=== PATIENT | male | born 1945 | race Caucasian/White ===

== ENCOUNTER 2016-08-05 11:23 | Observation (INO) | payer MEDICARE, OTHER ==
[~2016-08-05] VITALS: Ht 170.2 cm; Wt 98.4 kg
[~2016-08-05 11:23] MED LIST: ASPIRIN E.C. 8181 MG PO; CARDIZEM CD120 MG PO; CO Q-1050 MG PO; DILTIAZEM120 MG PO; NO HOME MEDICATIONS
[2016-08-05 11:58] LABS: HEMATOCRIT 48.8 % (42.0-52.0); HEMOGLOBIN 17.1 g/dl (13.5-18.0); MEAN CELL VOLUME 89 fl (80.0-100.0); MEAN CORPUSCULAR HEMOGLOBIN 31 pg (27.0-31.0); MEAN CORPUSCULAR HGB CONC 35 g/dl (33.0-37.0); PLATELET COUNT 227 K/mm3 (130-400); RED BLOOD COUNT 5.47 M/mm3 (4.20-5.60); REDCELL DISTRIBUTION WIDTH-CV 12.1 % (11.5-14.5)
[2016-08-05 12:03] LABS: ADD PATHOLOGY DIFF REVIEW NO
[2016-08-05 12:24] LABS: ADJUSTED CALCIUM 8.8 mg/dL (8.4-10.2); ALANINE AMINOTRANSFERASE 33 U/L (21-72); ALBUMIN 4.6 gm/dL (3.5-5.0); ALKALINE PHOSPHATASE 79 U/L (50-136); ANION GAP 17 mmol/L (7-16); BILIRUBIN,TOTAL 0.8 mg/dL (0.0-1.0); BLOOD UREA NITROGEN 19 mg/dL (9-20); CALCIUM 9.3 mg/dL (8.4-10.2); CARBON DIOXIDE 17 mmol/L (22-30); CHLORIDE 104 mmol/L (98-107); CREATININE, serum 1.02 mg/dL (0.66-1.25); GLUCOSE 155 mg/dL (74-106); LIPASE 98 U/L (23-300); POTASSIUM 3.7 mmol/L (3.4-5.0); SODIUM 138 mmol/L (137-145); TOTAL PROTEIN 7.5 gm/dL (6.4-8.2)
[2016-08-05 12:30] LABS: BAND 3 % (0-10); EOSINOPHIL 1 % (0-4); NEUTROPHILS 77 % (42.0-75.2); PLATELET ESTIMATE NORMAL (NORMAL); TOTAL CELLS COUNTED 100
[2016-08-05 12:34] LABS: C-REACTIVE PROTEIN < 0.5 mg/dL (0.0-0.9)
[2016-08-05 13:04] LABS: PH 5 (5-8); SQUAMOUS EPITHELIAL None Seen /hpf; URINE APPEARANCE Hazy; URINE BACTERIA Rare /hpf; URINE BILIRUBIN Negative (NEGATIVE); URINE BLOOD 3+ (NEGATIVE); URINE COLOR Yellow; URINE GLUCOSE Negative (NEGATIVE); URINE KETONE Trace (NEGATIVE); URINE RBC >50 /hpf; URINE UROBILINOGEN Negative (NEGATIVE)
[2016-08-05 17:21] VITALS: BP 169/65; PULSE 68; TEMP 97.8
[2016-08-05] MEDS ORDERED: TYLENOL 500MG500 MG PO (17:29)
[2016-08-05 20:00] VITALS: BP 140/68; PULSE 70; TEMP 98.6
[2016-08-06] VITALS (11 sets, daily range): BP systolic 137–166; BP diastolic 60–75; PULSE 55–76; TEMP 98.2–98.7
== END 2016-08-06 14:45 | disposition home or self-care (01) ==
LOC: COL.ER 11:23 → SURG 16:21
PROVIDERS: Emergency Medicine
DX: N13.2 Hydronephrosis with renal and ureteral calculous obstruction (principal); Z80.0 Family history of malignant neoplasm of digestive organs; I49.9 Cardiac arrhythmia, unspecified; M19.90 Unspecified osteoarthritis, unspecified site; Z87.891 Personal history of nicotine dependence
CPT/HCPCS: C1769; C2617; G0378; J0690; J0696; J1100; J1170; J1885; J2405; J2704; J3010; J7030; J7120; Q9967

== ENCOUNTER 2016-08-11 13:06 | Day surgery (SDC) | payer MEDICARE, OTHER ==
[2016-08-11] VITALS (9 sets, daily range): BP systolic 152–175; BP diastolic 60–74; PULSE 52–71; TEMP 98–98.4
[~2016-08-11] VITALS: Ht 170.2 cm; Wt 99.1 kg
[~2016-08-11 13:06] MED LIST changes: +TYLENOL 500MG500 MG PO
[2016-08-11] MEDS ORDERED: PYRIDIUM 100MG100 MG PO (14:15)
[2016-08-11] MEDS ORDERED: NORCO 325 MG-51 TAB PO (14:16)
[2016-08-11] MEDS ORDERED: TESSALON P100 MG/CAP PO (14:17)
[2016-08-11] MEDS ORDERED: SENNA8.8 MG/5 M PO (14:17)
[2016-08-11] MEDS ORDERED: ASPIRIN E.C. 8181 MG PO (14:18)
[2016-08-11] MEDS ORDERED: CARTIA XT120 MG PO (14:18)
[2016-08-11] MEDS ORDERED: THE MEDICINE S200 M2 PO (14:19)
== END 2016-08-11 20:45 | disposition home or self-care (01) ==
LOC: SDCO 13:06 → SURG 16:30 → SDCO 20:45
DX: N20.1 Calculus of ureter (principal); M19.90 Unspecified osteoarthritis, unspecified site; I49.9 Cardiac arrhythmia, unspecified; I10 Essential (primary) hypertension; E66.9 Obesity, unspecified; Z87.891 Personal history of nicotine dependence; Z82.49 Family history of ischemic heart disease and other diseases of the circulatory system; Z80.0 Family history of malignant neoplasm of digestive organs; Z84.1 Family history of disorders of kidney and ureter
CPT/HCPCS: OP; C1769; C1894; C2617; J0690; J1885; J2405; J2704; J3010; J7120

== ENCOUNTER → 2017-01-19 | Outpatient (CLI) | payer MEDICARE, OTHER ==
[~2017-01-19] MED LIST changes: +CARTIA XT120 MG PO; +NORCO 325 MG-51 TAB PO; +PYRIDIUM 100MG100 MG PO; +SENNA8.8 MG/5 M PO; +TESSALON P100 MG/CAP PO; +THE MEDICINE S200 M2 PO
== END ==
LOC: COL.RAD 08:09
DX: K76.0 Fatty (change of) liver, not elsewhere classified (principal); K82.8 Other specified diseases of gallbladder; N40.1 Benign prostatic hyperplasia with lower urinary tract symptoms; N18.1 Chronic kidney disease, stage 1
CPT/HCPCS: J7050; Q9967

== ENCOUNTER 2017-09-19 11:03 | Inpatient (IN) | payer MEDICARE, OTHER ==
[~2017-09-19] VITALS: Ht 170.2 cm; Wt 97.6 kg
[2017-11-15] VITALS (10 sets, daily range): BP systolic 139–187; BP diastolic 61–82; PULSE 55–76; TEMP 97.7–98
[2017-11-15] MEDS ORDERED: FLOMAX 0.40.4 MG/CAP PO (09:39)
[2017-11-15] MEDS ORDERED: ZESTRIL 5MG5 MG PO (09:39)
[2017-11-15] MEDS ORDERED: TYLENOL 500MG500 MG PO (09:40)
[2017-11-15] MEDS ORDERED: MOTRIN 200200 MG/TAB PO (09:41)
[2017-11-16 00:19] VITALS: BP 149/73; PULSE 75; TEMP 98.2
[2017-11-16 05:00] VITALS: BP 146/54; PULSE 66; TEMP 98.2
[2017-11-16 07:17] LABS: HEMATOCRIT 39.6 % (42.0-52.0)
[2017-11-16 08:00] VITALS: BP 142/63; PULSE 85; TEMP 98.8
[2017-11-16 12:57] VITALS: BP 140/55; PULSE 77; TEMP 98.7
[2017-11-16 16:45] VITALS: BP 149/56; PULSE 83; TEMP 98.3
[2017-11-16 20:19] VITALS: BP 150/76; PULSE 76; TEMP 97.8
[2017-11-17 04:26] VITALS: BP 148/68; PULSE 65; TEMP 98
[2017-11-17 07:34] VITALS: BP 145/63; PULSE 71; TEMP 98.3
[2017-11-17 12:10] VITALS: BP 141/60; PULSE 73; TEMP 97.5
== END 2017-11-17 14:30 | disposition home or self-care (01) | DRG 470 ==
LOC: JCC 11-15 09:08
PROVIDERS: Orthopaedic Surgery
PROC: 0SRD0J9 Replacement of Left Knee Joint with Synthetic Substitute, Cemented, Open Approach (ICD-10-PCS; principal; 2017-11-15 13:55)
DX: M17.12 Unilateral primary osteoarthritis, left knee (principal); I47.1 Supraventricular tachycardia; I10 Essential (primary) hypertension; Z87.891 Personal history of nicotine dependence
CPT/HCPCS: A4314; A9284; C1713; C1776; J0690; J1100; J2250; J2704; J7120

== ENCOUNTER → 2017-11-06 | Outpatient (CLI) | payer MEDICARE, OTHER ==
[2017-11-06 12:52] LABS: HIV 1/2 Antibodies Non-Reactive; HIV-1p24 Antigen Non-Reactive
== END ==
LOC: COL.LAB 11:43
PROVIDERS: Orthopaedic Surgery
DX: M19.90 Unspecified osteoarthritis, unspecified site (principal)